=== PATIENT | male | born 1970 | race African-American/Black ===

== ENCOUNTER 2019-04-10 11:49 | Emergency (ER) | payer MEDICAID ==
[~2019-04-10] VITALS: Ht 177.8 cm; Wt 85.7 kg
[2019-04-10 12:20] VITALS: BP 155/92
[2019-04-10 12:35] LABS: Urine Bacteria NONE SEEN /hpf (None Seen); Urine Blood TRACE /uL (Negative); Urine Mucus FEW (None Seen); Urine Specific Gravity 1.012 (1.001-1.035); Urine WBC <1 /hpf (0 - 3)
== END 2019-04-10 13:30 | disposition left against medical advice (07) ==
LOC: ER 11:49
DX: Z11.3 Encounter for screening for infections with a predominantly sexual mode of transmission (principal); Z53.21 Procedure and treatment not carried out due to patient leaving prior to being seen by health care provider
CPT/HCPCS: 81001

== ENCOUNTER 2019-12-09 08:06 | Emergency (ER) | payer MEDICAID ==
[~2019-12-09] VITALS: Ht 177.8 cm; Wt 87.1 kg
[2019-12-09 08:23] VITALS: BP 128/97
[2019-12-09 08:47] LABS: Urine WBC None Seen /hpf (0 - 3)
[2019-12-09 09:07] LABS: Urine Bacteria FEW /hpf (None Seen); Urine Blood Negative /uL (Negative); Urine Specific Gravity 1.025 (1.001-1.035)
[2019-12-09] MEDS ORDERED: cefTRIAXone SODIUM 250 MG VL IM ONE (09:30)
== END 2019-12-09 09:32 | disposition home or self-care (01) ==
LOC: ER 08:06
DX: A64 Unspecified sexually transmitted disease (principal); R30.0 Dysuria
CPT/HCPCS: 81001; 96372; 99283; J0696

== ENCOUNTER 2020-09-11 11:17 | Emergency (ER) | payer MEDICAID ==
[~2020-09-11] VITALS: Ht 177.8 cm; Wt 86.6 kg
[2020-09-11 11:22] VITALS: BP 136/86
[2020-09-11] MEDS ORDERED: cefTRIAXone SOD 1,000 MG VL IM ONE (12:00)
== END 2020-09-11 12:11 | disposition home or self-care (01) ==
LOC: ER 11:17
DX: L73.9 Follicular disorder, unspecified (principal); I10 Essential (primary) hypertension
CPT/HCPCS: 96372; 99283; J0696

== ENCOUNTER 2021-05-26 10:43 | Emergency (ER) | payer MEDICAID ==
[~2021-05-26] VITALS: Ht 175.3 cm; Wt 84.4 kg
[2021-05-26 11:19] VITALS: BP 153/100
== END 2021-05-26 11:56 | disposition home or self-care (01) ==
LOC: ER 10:43
DX: H00.011 Hordeolum externum right upper eyelid (principal); I10 Essential (primary) hypertension

== ENCOUNTER 2021-11-22 10:55 | Emergency (ER) | payer MEDICAID ==
[~2021-11-22] VITALS: Ht 177.8 cm; Wt 86.8 kg
[2021-11-22 11:21] VITALS: BP 116/89
[2021-11-22] MEDS ORDERED: CYCL-837 PO (12:43)
[2021-11-22] MEDS ORDERED: IBUP800T27 PO (12:43)
== END 2021-11-22 13:36 | disposition home or self-care (01) ==
LOC: ER 10:55
DX: S46.911A Strain of unspecified muscle, fascia and tendon at shoulder and upper arm level, right arm, initial encounter (principal); I10 Essential (primary) hypertension; Z79.1 Long term (current) use of non-steroidal anti-inflammatories (NSAID); Z79.899 Other long term (current) drug therapy; V86.99XA Unspecified occupant of other special all-terrain or other off-road motor vehicle injured in nontraffic accident, initial encounter; Y93.89 Activity, other specified; Y92.89 Other specified places as the place of occurrence of the external cause; Y99.8 Other external cause status
CPT/HCPCS: 73030